=== PATIENT | female | born 1980 | race Hispanic/Latino ===

== ENCOUNTER 2016-12-21 14:40 | Outpatient (CLI) | payer OTHER ==
--- NOTE | 2016-12-22 09:01 | Mammography Report ---
Bilateral diagnostic mammogram including spot magnification of subareolar densities left breast and bilateral sonogram: History: Bilateral palpable lumps. Findings: Predominance it was tissue bilaterally. No microcalcification or mass. Benign axillary nodes. Faint ill-defined densities subareolar area left breast. On spot magnification views no distinct mass is identified in the densities with effacement of the densities noted. Sonographic examination of right and left breast reveals no distinct cystic or solid mass. Impression: Benign findings. Annual followup recommended. BI-RADS CATEGORY: 2 = Benign ACR BI-RADS MAMMOGRAPHIC CODES: 0 = Needs additional imaging evaluation; 1 = Negative; 2 = Benign; 3 = Probably benign; 4 = Suspicious; 5 = Malignant; 6 = Known biopsy-proven malignancy COMMENT: 1. Dense breast tissue, i.e., adenosis, fibrocystic changes, etc., may obscure an underlying neoplasm. 2. Approximately 10% of cancers are not detected with mammography. 3. A negative mammography report should not delay biopsy if a clinically suspicious mass is present. COMMENT: Patient follow-up letters are generated in [employer].
== END 2016-12-21 14:41 | disposition home or self-care (01) ==
LOC: MAMMO 14:40
PROVIDERS: ATTEND Family Medicine
DX: N63 Unspecified lump in breast (principal)
CPT/HCPCS: 76641; G0204; 77066